=== PATIENT | male | born 1990 | race Hispanic/Latino ===

== ENCOUNTER 2020-01-27 19:14 | Emergency (ER) | payer OTHER ==
[~2020-01-27] VITALS: Ht 190.5 cm; Wt 133.8 kg
[2020-01-27] MEDS ORDERED: TETRACAINE HCL 0.5% OPTH SOLN 4 ML BTL OP ONE (19:30)
[2020-01-27] MEDS ORDERED: CIPRO HC OTIC S10 ML EACH EAR (19:31)
--- NOTE | 2020-01-27 19:37 | Emergency Department Note ---
History of Present Illnes History of Present Illness Chief Complaint: Eye, Ear, Nose, Throat, Dental History of Present Illness This is a 30 year old male Chief Complaint Comment pt c/o right ear pain and swelling, pt states that he was diagnosed with an ear infection on Thursday and was prescribed some anti-biotics, pt states that he feels the swelling has gotten worse. He has been taking neomycin drops. No other symptoms. 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 Any updates have been documented here. Past Medical History Recent Fever: No Clinical Suspicion of Infectio: No New/Unexplained Change in Ment: No Past Medical History: None Past Surgical History: None Review of Systems Review of Systems Constitutional: Reports no symptoms EENTM: Reports no symptoms, Reports ear pain (R) Cardiovascular: Reports no symptoms Respiratory: Reports no symptoms Gastrointestinal: Reports no symptoms Genitourinary: Reports no symptoms Musculoskeletal: Reports no symptoms Integumentary: Reports no symptoms Neurological: Reports no symptoms Psychological: Reports no symptoms Endocrine: Reports no symptoms Hematological/Lymphatic: Reports no symptoms Physical Exam Related Data Allergies: Coded Allergies: No Known Allergies (Unverified , 01/27/20) Triage Vital Signs Vital Signs Date Time Temp Pulse Resp B/P (MAP) Pulse Ox O2 Delivery O2 Flow Rate FiO2 01/27/20 19:23 97.9 62 18 127/71 100 Room Air Vital signs reviewed: Yes Physical Exam CONSTITUTIONAL Constitutional: Present well-developed, Present well-nourished HENT HENT: Present normocephalic, Present atraumatic, Present oropharynx clear/moist, Present nose normal HENT L/R: Present left TM normal, Present left canal normal, Present left ext ear normal, Present right ext ear normal; Absent right TM normal (Obscured 2/2 EAC swelling), Absent right canal normal (White/clear debris) EYES Eyes: Reports PERRL, Reports conjunctivae normal NECK Neck: Present ROM normal PULMONARY Pulmonary: Present effort normal, Present breath sounds normal CARDIOVASCULAR Cardiovascular: Present regular rhythm, Present heart sounds normal, Present capillary refill normal, Present normal rate GASTROINTESTINAL Abdominal: Present soft, Present nontender, Present bowel sounds normal GENITOURINARY Genitourinary: Present exam deferred SKIN Skin: Present warm, Present dry MUSCULOSKELETAL Musculoskeletal: Present ROM normal NEUROLOGICAL Neurological: Present alert, Present oriented x 3, Present no gross motor or sensory deficits PSYCHOLOGICAL Psychological: Present mood/affect normal, Present judgement normal Results Laboratory Laboratory Laboratory Tests Test 01/27/20 19:26 Bedside Glucose 108 mg/dL (70-120) Assessment & Plan Medical Decision Making MDM 30-year-old male presents to the emergency department for right ear pain. He was recently diagnosed with otitis externa and given neomycin ear drops which are not helping. Examination is consistent with right otitis externa. We will prescribe ciprofloxacin hydrocortisone eardrops. He is given tetracaine drop in the emergency department for pain. He'll follow up with primary care provider or return to emergency department if new or worsening symptoms. POC glucose is w ithin normal limits and doubt malignant otitis externa. Patient is appropriate for discharge. Reassessment Reassessment time: 19:36 Reassessment Pain improved after tetracaine ear drop Assessment & Plan Final Impression: (1) Otitis externa Depart Disposition: HOME, SELF-CARE Last Vital Signs Date Time Temp Pulse Resp B/P (MAP) Pulse Ox O2 Delivery O2 Flow Rate FiO2 01/27/20 19:23 97.9 62 18 127/71 100 Room Air Home Meds Active Scripts Ciprofloxacin/Hydrocortisone (CIPRO HC OTIC SUSPENSION) 10 Ml Soln, 3 DROP EACH EAR TID for 10 Days, #1 BOTTLE 0 Refills Prov:YANIRA KOHLI MD 01/27/20 Medications in the ED Tetracaine HCl ONCE ONCE OP Last administered on 01/27/20at 19:30; Admin Dose 0.1 ML; Start 01/27/20 at 19:30; Stop 01/27/20 at 19:31; Status DC YANIRA KOHLI MD Jan 27, 2020 19:37
--- OUTSIDE RECORDS SUMMARY | 2020-01-27 23:44 | XMS REPORT | Continuity of Care Document ---
Author Author [facility] t Organization [facility] Address [address] [place] [address] Phone Unavailable Care Team Providers Care Vending Machine Servicer Name Role Phone Amadeo DUFFY, Dolores PCP [phone] Amadeo DUFFY, Dolores Attphys [phone] Jayesh HORSE DOCTOR, Mary Attphys Martha Rivera MD Attphys Payers Payer Name Policy Type Policy Number Effective Date Expiration Date S [employer].xxxx-xxxx8/-PresentWorkers Comp xxxx-xxxx 2019 00:00:00 Abrahan casey CUM[employer] BENEFIT PLANxxxxxxxxxxxx2017-PresentPPO xxxxxxxxxxxx 2017 00:00:00 Abrahan Warner CIGNACIGNA/ALLEGIANCE BENEFIT PLANxxxxxxxxxxxx7-Pr esentPPO xxxxxxxxxxxx 2019 00:00:00 Abrahan Warner Problems Condition Name Condition Details Condition Category Status Onset Date Resolution Date Last Treatment Date Treating Clinician Comments Source Tendonitis, Achilles, left Tendonitis, Achilles, left Disease Active 2019-02-03 00:00:[address] Tendinopathy of right rotator cuff Tendinopathy of right rotator cuff Disease Active 2016-11-25 00:00:00 Ariadna Warner Chronic pain of both shoulders Chronic pain of both shoulders Disea se Active 2016-11-25 00:00:00 Abrahan Warner Allergies, Adverse Reactions, Alerts This patient has no known allergies or adverse reactions. Family History Family Member Diagnosis Comments Start Date Stop Date Source Natural father Diabetes Abrahan Campos thodist Natural mother No Known Problems Angelika maewendy Warner Paternal grandfather Diabetes Van macedo Alana Paternal grandmother Colon cancer Jesus amado Alana Social History Social Habit Start Date Stop Date Quantity Comments Source Sex Assigned At Angelika rita Warner Alcohol intake 2019-02-03 00:00:00 2019-02-03 00:00:00 Current non-drinker of alcohol (finding) Abrahan Warner Smoking Status Start Date Stop Date Source Never smoker Abrahan Acevedo t Medications Ordered Medication Name Filled Medication Name Start Date Stop Da te Current Medication? Ordering Clinician Indication Dosage Frequency Signature (SIG) Comments Components Source lbftefao-ddepqvdxf-ZF (CORTISPORIN) 3.5-10,000-1 mg/mL -unit/mL-% otic solution 2020-01-25 00:00:00 2020-02-04 23:59:00 Yes 3[drp] Q.25D Administer 3 drops to the right ear 4 (four) times a day for 10 days. Abrahan Warner erythromycin 0.5% (ILOTYCIN) 5 mg/gram (0.5 %) ophthalmic oi ntment 2020-01-25 00:00:00 2020-02-01 23:59:00 Yes 1{application} Q6H Administer 1 application into the left eye every 6 (six) hours for 7 days. Abrahan Warner olopatadine 0.2 % drops 2019-10-10 00:00:00 Yes 1[drp] QD Apply 1 drop to eye daily. Abrahan Warner naproxen (NAPROSYN) 500 MG tablet 2019-01-18 00:00:00 Yes 500mg Q.5D Take 500 mg by mouth 2 (two) times a day as needed. for pain Abrahan Warner Vital Signs Vital Name Observation Time Observation Value Comments Source Body height 2019-02-03 14:50:00 190.5 cm Abrahan Warner Body weight 2019-02-03 14:50:00 136.079 kg Abrahan Warner BMI 2019-02-03 14:50:00 37.50 kg/m2 Abrahan Warner Procedures This patient has no known procedures. Plan of Care Planned Activity Planned Date Details Comments Source Future Scheduled Test 2020-02-14 00:00:00 INFLUENZA VACCINE [code = INFLUENZA VACCINE] Abrahan Warner Encounters Start Date/Time End Date/Time Encounter Type Admission Type [facility] Care Department Encounter ID Source 2020-01-25 00:00:00 2020-01-25 00:00:00 Outpatient [facility] [id number] Abrahan Warner 2019-10-10 00:00:00 2019-10-10 00:00:00 Outpatient DOLORES CALVIN [facility] [id number] Abrahan Warner Results This patient has no known results.
--- OUTSIDE RECORDS SUMMARY | 2020-01-27 23:44 | XMS REPORT | Clinical Summary ---
Author Author [facility] Organization [facility] Address Unknown Phone Unavailable Care Team Providers Care Risk Management Director Name Role Phone Suzette Childs MD PCP [phone] Allergies No Known Allergies Medications End Date Status Medication Sig Dispensed Refills Start Date Active naproxen (NAPROSYN) 500 Take 500 mg 0 MG tablet by mouth 2 9 (two) times a day as needed. for pain Active olopatadine 0.2 % drops Apply 1 drop 1 Bottle 0 0 to eye daily. 0 02/04/2020 Active ajdexwam-sgypusvpd-RB Administer 3 10 mL 0 (CORTISPORIN) drops to the 0 3.5-10,000-1 right ear 4 mg/mL-unit/mL-% otic (four) times solution a day for 10 days. 02/01/2020 Active erythromycin 0.5% Administer 1 3.5 g 0 02 (ILOTYCIN) 5 mg/gram (0.5 application 0 %) ophthalmic ointment into the left eye every 6 (six) hours for 7 days. Active Problems Problem Noted Date Tendonitis, Achilles, left 02/03/2019 Tendinopathy of right rotator cuff 11/25/2016 Chronic pain of both shoulders 11/25/2016 Encounters Care Team Description Date Type Specialty Suzette Childs MD Right ear pain (Primary Dx); Other infective acute otitis externa of right ear; Eye swelling, left; Hordeolum externum of left upper eyelid 01/25/2020 Telemedicine Internal Medicine Mary Mcconnell NP RE: E-Visit Submission: Sore Throat 01/24/2020 E-Visit Family Medicine Suzette Childs MD Eye swelling, left (Primary Dx); Allergic conjunctivitis of left eye 10/10/2019 Telemedicine Internal Medicine 10/10/2019 Travel Shimon Rivera MD Tendonitis, Achilles, left (Primary Dx) 02/03/2019 Office Visit Orthopedic Surgery after 01/26/2019 Family History Medical History Relation Name Comments Diabetes Father Raza peterson No Known Problems Mother Diabetes Paternal Franko Peterson Grandfather Colon cancer Paternal Grandmother Relation Name Status Comments Brother Alive Father Raza peterson Alive Maternal Grandfather Alive Maternal Grandmother Alive Mother Alive Paternal Grandfather Franko Peterson Paternal Grandmother Sister Alive Social History Date Tobacco Use Types Packs/Day Years Used Never Smoker 0 0 Smokeless Tobacco: Never Used Drinks/Week oz/Week Comments Alcohol Use No Sex Assigned at Date Recorded Not on file Industry Job Start Date Occupation Not on file Not on file Not on file Travel End Travel History Travel Start No recent travel history available. Last Filed Vital Signs Reading Time Taken Comments Vital Sign - - Blood Pressure - - Pulse - - Temperature - - Respiratory Rate - - Oxygen Saturation - - Inhaled Oxygen Concentration 136 kg (300 lb) 02/03/2019 2:50 PM CDT Weight 190.5 cm (6' 3") 02/03/2019 2:50 PM CDT Height 37.5 02/03/2019 2:50 PM CDT Body Mass Index Plan of Treatment Health Maintenance Due Date Last Done Comments INFLUENZA VACCINE 02/14/2020 Results Not on fileafter 01/26/2019 Insurance Type Payer Benefit Subscriber ID Effective Phone Address Plan / Dates Group Workers Comp WORKERS COMP [place] RISK [id number] 2019-P [employer] [facility] 2017-P BENEFIT resent PLAN PPO CIGNA CIGNA/[place] xxxxxxxxxxxx 2019-P GIANCE resent BENEFIT PLAN [id number] Workers Employer [phone] [id number] [facility] (Home) [place] [address] DO NOT USE-EMPLOYEE Jean Montoya ATTN: [facility] nal (Home) [address] [facility] [address] Advance Directives For more information, please contact: [phone] Patient Energy Director Explanation Type Date Recorded Advance Directives, Living Will and Medical Power of Potline Monitor
== END 2020-01-27 20:25 | disposition home or self-care (01) ==
LOC: ER 19:35
DX: H60.91 Unspecified otitis externa, right ear (principal)
CPT/HCPCS: 36415; 82948; 99283